=== PATIENT | male | born 2000 | race Caucasian/White ===

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

== ENCOUNTER 2018-01-13 14:27 | Emergency (ER) | payer OTHER, BC ==
[~2018-01-13] VITALS: Wt 122.5 kg
[2018-01-13 14:28] VITALS: BP 102/72
== END 2018-01-13 16:21 | disposition home or self-care (01) ==
LOC: ED 14:27
DX: S60.450A Superficial foreign body of right index finger, initial encounter (principal); X58.XXXA Exposure to other specified factors, initial encounter; Y93.89 Activity, other specified; Y92.89 Other specified places as the place of occurrence of the external cause; Y99.8 Other external cause status

== ENCOUNTER → 2020-02-02 | Outpatient (CLI) | payer OTHER | END | disposition home or self-care (01) | LOC: COVID19 14:52 | PROVIDERS: ATTEND Nurse Practitioner Family | DX: U07.1 COVID-19 (principal) ==

== ENCOUNTER → 2020-02-17 | Outpatient (CLI) | payer OTHER | END | disposition home or self-care (01) | LOC: RAD 15:05 | PROVIDERS: ATTEND Nurse Practitioner Family | DX: S30.0XXA Contusion of lower back and pelvis, initial encounter (principal); M54.5 Low back pain; X58.XXXA Exposure to other specified factors, initial encounter; Y93.89 Activity, other specified; Y92.89 Other specified places as the place of occurrence of the external cause; Y99.8 Other external cause status ==

== ENCOUNTER → 2020-08-04 | Outpatient (CLI) | payer OTHER | END | disposition home or self-care (01) | LOC: MRI 07-14 14:00 | PROVIDERS: ATTEND Nurse Practitioner Family | DX: M51.26 Other intervertebral disc displacement, lumbar region (principal); M48.061 Spinal stenosis, lumbar region without neurogenic claudication; M54.16 Radiculopathy, lumbar region; M54.41 Lumbago with sciatica, right side ==

== ENCOUNTER 2021-07-11 23:00 | Emergency (ER) | payer OTHER ==
[2021-07-11 23:13] VITALS: BP 119/74
[2021-07-12] MEDS ORDERED: ZITHROMAX250 MG PO (01:58)
[2021-07-12] MEDS ORDERED: PREDNISONE50 MG PO (01:58)
== END 2021-07-12 02:01 | disposition home or self-care (01) ==
LOC: ED 23:00
DX: J45.909 Unspecified asthma, uncomplicated (principal); Z20.822 Contact with and (suspected) exposure to COVID-19

== ENCOUNTER 2022-07-16 14:59 | Emergency (ER) | payer OTHER ==
[~2022-07-16] VITALS: Ht 187.9 cm; Wt 117.9 kg
[~2022-07-16 14:59] MED LIST changes: +PREDNISONE50 MG PO
[2022-07-16 15:17] VITALS: BP 132/94
[2022-07-16] MEDS ORDERED: AMOX-CLAV 875-1 EACH PO (16:32)
== END 2022-07-16 16:51 | disposition home or self-care (01) ==
LOC: ED 14:59
DX: S91.332A Puncture wound without foreign body, left foot, initial encounter (principal); J45.909 Unspecified asthma, uncomplicated; Z98.890 Other specified postprocedural states; W22.8XXA Striking against or struck by other objects, initial encounter; Y93.89 Activity, other specified; Y92.89 Other specified places as the place of occurrence of the external cause; Y99.8 Other external cause status

== ENCOUNTER → 2022-12-22 | Outpatient (CLI) | payer OTHER ==
[~2022-12-22] MED LIST changes: +AMOX-CLAV 875-1 EACH PO
== END | disposition home or self-care (01) ==
LOC: RAD 15:19
PROVIDERS: ATTEND Nurse Practitioner Family
DX: R05.1 Acute cough (principal)